=== PATIENT | female | born 1985 | race Caucasian/White ===

== ENCOUNTER 2018-04-28 13:20 | Outpatient (CLI) | payer OTHER ==
[~2018-04-28 13:20] MED LIST: Gadobenate Dimeglumine 529 MG/1 ML (20ML VIAL) ONE
--- NOTE | 2018-04-28 16:34 | MRI ---
MRI BRAIN WITH AND WITHOUT CONTRAST: Date: 04/28/18 HISTORY: Intractable headache. COMPARISON: None. TECHNIQUE: Brain MRI is performed with and without intravenous Gadolinium administration. Multisequential, multi planar imaging is performed. FINDINGS: No parenchymal hemorrhage. No extra-axial hematoma. No parenchymal mass, mass effect, or midline shif t. Brain volume, age-appropriate. Cortical rahman-white matter differentiation is preserved. Ventricles and sulci are patent and symmetric. Central arterial flow-voids are maintained. No restricted diffus ion. No significant T2 or FLAIR white matter hyperintensities. There is a solitary T2 hyperintense focus i n the right centrum semiovale which is felt to be artifactual (image 19). Adequate aeration of the sinuses and mastoid air cells. Calvarium has a normal T1 marrow signal inten sity. Midline brain parenchymal structures are unremarkable. Partially empty sella is noted. No patho logic enhancement of the brain parenchyma. IMPRESSION: 1. No pathologic enhancement of the brain parenchyma. 2. No abnormal signal intensity in the visualized brain parenchyma. 3. Partially empty sella. Correlate for intracranial hypertension/pseudotumor cerebri. POS: [facility]
== END 2018-04-28 13:21 | disposition home or self-care (01) ==
LOC: BICMRI 13:20
PROVIDERS: ATTEND Family Medicine
DX: G44.209 Tension-type headache, unspecified, not intractable (principal)
CPT/HCPCS: 70553; A9579

== ENCOUNTER 2018-09-15 14:32 | Outpatient (CLI) | payer OTHER | END 2018-09-15 14:33 | disposition home or self-care (01) | LOC: ULT 14:32 | PROVIDERS: ATTEND Family Medicine | DX: I95.89 Other hypotension (principal); I07.1 Rheumatic tricuspid insufficiency | CPT/HCPCS: 93306 ==

== ENCOUNTER 2018-09-20 12:34 | Outpatient (CLI) | payer OTHER | END 2018-09-20 12:35 | disposition home or self-care (01) | PROVIDERS: ATTEND Family Medicine | DX: I95.89 Other hypotension (principal) | CPT/HCPCS: 93225; 93226 ==